=== PATIENT | female | born 1950 | race Hispanic/Latino ===

== ENCOUNTER 2017-01-15 14:28 | Outpatient (CLI) | payer MEDICARE, MEDICAID | END 2017-01-15 14:29 | disposition home or self-care (01) | LOC: LABHHL 14:28 | PROVIDERS: ATTEND Surgery | DX: N61.0 Mastitis without abscess (principal); N63.10 Unspecified lump in the right breast, unspecified quadrant | CPT/HCPCS: 88305; 88312; 88342 ==